=== PATIENT | female | born 1985 | race Caucasian/White ===

== ENCOUNTER 2016-08-06 04:04 | Emergency (ER) | payer OTHER ==
[~2016-08-06] VITALS: Ht 162.5 cm; Wt 75.7 kg
[~2016-08-06 04:04] MED LIST: BENADRYL25 M2 PO; COLACE100 MG PO; DOXYCYCLINE100 M2 PO; ELIMITE 5%60 GM T; ETODOLAC400 MG PO; FIORICET 325 MG1 TAB PO; LATU20TA PO; MOTRIN800 MG PO; Motrin,Rufen800 MG PO; NKHM PO; Orphenadrine C100 MG PO; PERCOCET 325 MG1 TA5 PO; PREDNICOT20 MG PO; PREDNISONE10 MG PO; PREDNISONE50 MG PO; PROVENTIL0.09 MG/A1 INH; ROBITUSSIN DM 105 ML PO; TESSALON PERLE100 M1 PO; TRAMADOL HCL50 MG PO; ULTRAM50 MG PO; VISTARIL25 M2 PO; ZITHROMAX Z PA250 MG PO; ZOFRAN ODT4 MG SL; ZOVIRAX800 MG PO
[2016-08-06] MEDS ORDERED: PREDNISONE20 M1 PO (05:16)
[2016-08-06] MEDS ORDERED: TESSALON PERLE100 M1 PO (05:16)
[2016-08-06] MEDS ORDERED: PSEUDOEPHEDRINE60 MG PO (05:16)
[2016-08-06] MEDS ORDERED: ZITHROMAX250 MG PO (05:16)
== END 2016-08-06 05:37 | disposition home or self-care (01) ==
LOC: ED 04:04
DX: J01.90 Acute sinusitis, unspecified (principal); J20.9 Acute bronchitis, unspecified; F41.9 Anxiety disorder, unspecified; F32.9 Major depressive disorder, single episode, unspecified; G43.909 Migraine, unspecified, not intractable, without status migrainosus; F17.200 Nicotine dependence, unspecified, uncomplicated; Z88.0 Allergy status to penicillin; Z88.6 Allergy status to analgesic agent; Z91.040 Latex allergy status